=== PATIENT | male | born 1975 | race Caucasian/White ===

== ENCOUNTER 2017-10-30 10:26 | Emergency (ER) | payer OTHER ==
[~2017-10-30] VITALS: Ht 182.9 cm; Wt 83.9 kg
[~2017-10-30 10:26] MED LIST: DURAGESIC25 MCG/HR
== END 2017-10-30 12:24 | disposition home or self-care (01) ==
LOC: ER 10:26
DX: H57.12 Ocular pain, left eye (principal)